=== PATIENT | female | born 1945 | race Caucasian/White ===

== ENCOUNTER 2020-07-21 14:43 | Emergency (ER) | payer OTHER ==
[2020-07-21 15:09] VITALS: BMI 18.1
[2020-07-21 17:19] LABS: BASO % 0.7 % (0-2.0); EOS % 1.5 % (0-4.5); HEMATOCRIT 29.4 % (32.4-45.2); HEMOGLOBIN 9.7 GM/dL (10.7-15.3); LYMPH % 12.3 % (8-40); MCH 28.8 pg (25.7-33.7); MEAN CELL VOLUME 87.5 fl (80-96); MEAN PLT VOLUME 7.7 fl (7.5-11.1); MONO % 6.6 % (3.8-10.2); NEUT % 78.9 % (42.8-82.8); PLATELET COUNT 404 K/MM3 (134-434); RBC 3.36 M/mm3 (3.60-5.2); RDW 16.4 % (11.6-15.6)
[2020-07-21 17:39] LABS: POTASSIUM 4.7 mmol/L (3.5-5.1)
[2020-07-21 17:41] LABS: CALCIUM 9.4 mg/dL (8.5-10.1)
[2020-07-21 17:42] LABS: ALBUMIN 3.6 g/dl (3.4-5.0); BLOOD UREA NITROGEN 13.8 mg/dL (7-18)
[2020-07-21 17:45] LABS: CREATININE 0.6 mg/dL (0.55-1.3)
[2020-07-21 17:46] LABS: BILIRUBIN,TOTAL 0.4 mg/dL (0.2-1)
[2020-07-21 17:47] LABS: TOT PROT 7.3 g/dl (6.4-8.2)
[2020-07-21 21:11] VITALS: BP 121/69; PULSE 97
[2020-07-21 22:46] VITALS: TEMP 99.5
== END 2020-07-22 00:32 | disposition home or self-care (01) ==
LOC: JER 14:43
DX: R78.81 Bacteremia (principal); I95.9 Hypotension, unspecified; R50.9 Fever, unspecified
CPT/HCPCS: 36415; 74176-TC; 80053; 85025; 87040; 93005; 93010; 99284-25